=== PATIENT | female | born 2000 | race African-American/Black ===

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

== ENCOUNTER → 2020-06-21 | Outpatient (CLI) | payer BC ==
--- NOTE | 2020-06-21 14:45 | US ---
EXAMINATION TYPE: US kidneys/renal and bladder DATE OF EXAM: 06/21/2020 COMPARISON: NONE CLINICAL HISTORY: 20-year-old female N39.0 UTI R30.0 Dysuria. TECHNIQUE: Multiple sonographic images of the kidneys and bladder are obtained. FINDINGS: EXAM MEASUREMENTS: Right Kidney: 9.2 x 3.4 x 4.6 cm Left Kidney: 8.6 x 5.0 x 4.7 cm No hydronephrosis on either side. Bladder: wnl Bilateral Jets seen: Yes IMPRESSION: No hydronephrosis.
[2020-06-21 15:32] LABS: Basophils % (A) 0 %; Eosinophils # (A) 0.1 k/uL (0-0.7); Eosinophils % (A) 0 %; HCT 42.4 % (34.0-46.0); HGB 13.6 gm/dL (11.4-16.0); Lymphocytes # (A) 1.7 k/uL (1.0-4.8); Lymphocytes % (A) 13 %; MCH 24.9 pg (25.0-35.0); MCHC 32.1 g/dL (31.0-37.0); MCV 77.6 fL (80.0-100.0); Mean Platelet Volume 8.3; Monocytes # (A) 0.8 k/uL (0-1.0); Monocytes % (A) 6 %; Neutrophils # (A) 10.1 k/uL (1.3-7.7); Neutrophils % (A) 78 %; Platelet Count 202 k/uL (150-450); RBC 5.47 m/uL (3.80-5.40); RDW 13.9 % (11.5-15.5); WBC 12.9 k/uL (3.8-10.6)
[2020-06-21 15:42] LABS: ALT 17 U/L (4-34); AST 25 U/L (14-36); African American GFR (CKD) >90 (>60 ml/min/1.73 sqM); Albumin 5.1 g/dL (3.5-5.0); Alkaline Phosphatase 97 U/L (38-126); Anion Gap 12 mmol/L; Blood Urea Nitrogen 12 mg/dL (7-17); Calcium 10.1 mg/dL (8.4-10.2); Carbon Dioxide 27 mmol/L (22-30); Chloride 102 mmol/L (98-107); Glucose 96 mg/dL (74-99); Non-African American GFR(CKD) >90 (>60 ml/min/1.73 sqM); Potassium 4.1 mmol/L (3.5-5.1); Sodium 141 mmol/L (137-145); Total Bilirubin 0.5 mg/dL (0.2-1.3); Total Protein 8.9 g/dL (6.3-8.2)
--- NOTE | 2020-06-21 16:33 | US ---
EXAMINATION TYPE: US pelvic complete DATE OF EXAM: 06/21/2020 COMPARISON: NONE CLINICAL HISTORY: 20-year-old female N39.0 UTI R30.0 Dysuria. TECHNIQUE: Transvaginal (TV) and Transabdominal (TA) . Transabdominal sonographic images of the pel vis were acquired. Transvaginal sonographic images were medically necessary to better assess the fol lowing anatomy: ovaries Date of LMP: 05-22-20 FINDINGS: EXAM MEASUREMENTS: Uterus: 8.4 x 3.5 x 3.9 cm Endometrial Stripe: 0.5 cm Right Ovary: 5.1 x 3.8 x 3.1 cm for a volume of 30.0 mL Left Ovary: 4.9 x 1.7 x 1.9 cm for a volume of 8.0 mL. 1. Uterus: Anteverted and otherwise wnl 2. Endometrium: wnl 3. Right Ovary: measures large. Lobulated in shape with multiple small peripherally oriented follicl es and echogenic central stroma. There is satisfactory arterial and venous flow demonstrated with spe ctral Doppler analysis. 4. Left Ovary: Follicular change is noted. 5. Bilateral Adnexa: wnl 6. Posterior cul-de-sac: wnl IMPRESSION: 1. The right ovary is large and lobulated with a volume of 30.0 mL. Satisfactory arterial and venous flow argues against ovarian torsion. Given the multiple small peripheral follicles and large size, co nsider a polycystic ovary. 2. Otherwise, the left ovary and uterus appear unremarkable.
== END | disposition home or self-care (01) ==
LOC: RADUSWWP 12:45
PROVIDERS: ATTEND Pediatrics Adolescent Medicine
DX: N83.8 Other noninflammatory disorders of ovary, fallopian tube and broad ligament (principal); N30.80 Other cystitis without hematuria; R30.0 Dysuria; N10 Acute pyelonephritis
CPT/HCPCS: 76770; 76830; 76856; 80053; 85025; 86141